=== PATIENT | male | born 1975 | race Caucasian/White ===

== ENCOUNTER 2016-04-04 09:30 | Outpatient (CLI) | payer OTHER ==
--- NOTE | 2016-04-04 12:52 | PN ---
DATE OF SERVICE: 04/04/2016 A 40-year-old gentleman who has been [facility] for treatment of obstructive sleep apnea-hypopnea syndrome. According to the patient and family, patient continued to use his equipment every night for the whole night. No snoring with the machine. [place] Sleepiness Scale is 5. CPAP pressure in the machine is 11. Patient increased his weight from 479 pounds up to 492 pounds today since that time when he had titration. Recently patient had been diagnosed with possible polyarthritis, started on treatment with anti-inflammatory medications. Previously, patient was on treatment with lisinopril for the high blood pressure. Presently, he is not on lisinopril. MEDICATIONS: Methotrexate, sulindac. During physical exam, a pleasant gentleman without distress. BP 150/89, HR 76, RR 16. Height 5, 11. Weight 492. BMI 68.6. Neck 17-1/4 inches in circumference. Temperature 97.8. Oxygen saturation at room air 96%. Oropharynx extremely low position of soft palate. EXTREMITIES: Obese, 1+ ankle edema. ABDOMEN: Obese. IMPRESSION: 1. Obstructive sleep apnea-hypopnea syndrome, clinically on control with CPAP at 11 cm of water. 2. Obesity. Patient increased his weight up, present body mass index 68.6. 3. Hypertension. 4. Arthritis. 5. Status posts fall about 1-1/2 years ago with right arm trauma. PLAN: 1. Continue treatment with CPAP every night for the whole night. 2. Prescription for all necessary CPAP supplies. 3. Follow with the primary care physician for monitoring of blood pressure and possibly treatment with medications. 4. Low-sodium diet. 5. No driving if feeling any sleepiness. 6. Sleep hygiene with regular time bed for at least 8 hours. Thank you very much for allowing me to participate in the management of your patient. Sincerely, Stanford León MD, PhD, FAASM. Diplomat of [place] [employer], Sleep Medicine Board by [place] [employer] [place] [employer] [facility] [place]
== END 2016-04-04 12:30 | disposition home or self-care (01) ==
LOC: SLEEP 09:30
PROVIDERS: ATTEND Internal Medicine
DX: G47.33 Obstructive sleep apnea (adult) (pediatric) (principal); E66.9 Obesity, unspecified; Z68.44 Body mass index [BMI] 60.0-69.9, adult; I10 Essential (primary) hypertension; M19.90 Unspecified osteoarthritis, unspecified site; Z79.899 Other long term (current) drug therapy

== ENCOUNTER 2018-09-13 18:59 | Inpatient (IN) | payer OTHER ==
[2018-09-13] MEDS ORDERED: ACETAMINOPHEN TAB 500 MG TAB PO STA (19:38)
[2018-09-13] MEDS ORDERED: IBUPROFEN 400 MG TAB PO STA (19:39)
--- NOTE | 2018-09-13 20:00 | ED ---
General Adult HPI - General Chief complaint: Headache Stated complaint: Headache Time Seen by Provider: 09/13/18 19:24 Source: patient Mode of arrival: ambulatory Limitations: no limitations - History of Present Illness Initial comments: 43-year-old male patient presents to the emergency department today for evaluation of headache, lightheadedness, and nausea. The patient states that he started feeling ill around 2 to 3:00 this afternoon. Patient states he did feel feverish and chilled despite it being 86 outside. Patient denies any nasal congestion, cough, sore throat, or rash. States he does have an infected right great toe. States it has been hurting for the last 3 days. Does notice some drainage from the area. He denies any vomiting or diarrhea. Denies any abdominal pain. Denies any sick contacts. Patient denies any recent rash, s hortness breath, chest pain, abdominal pain, constipation, back pain, numbness, tingling, dizziness, weakness, hematuria, dysuria, urinary urgency, urinary frequency, headache, visual changes, or any other complaints. - Related Data Home Medications Medication Instructions Recorded Confirmed Adalimumab [Humira Pediatric 40 mg SQ Q14D 09/13/18 09/13/18 Crohn's] Methotrexate Sodium [Methotrexate] 20 mg PO FR 09/13/18 09/13/18 Allergies Allergy/AdvReac Type Severity Reaction Status Date / Time No Known Allergies Allergy Verified 09/13/18 19:40 Review of Systems ROS Statement: Those systems with pertinent positive or pertinent negative responses have been documented in the HPI. ROS Other: All systems not noted in ROS Statement are negative. Past Medical History Additional Past Medical History / Comment(s): Psoriatic Arthritis, sleep apnea Past Surgical History: No Surgical Hx Reported Smoking Status: Never smoker Past Alcohol Use History: Occasional Past Drug Use History: None Reported General Exam Limitations: no limitations General appearance: alert, in no apparent distress, other (This is a well- developed, well-nourished adult male patient in no acute distress. Vital signs upon presentation are temperature 102.6F, pulse 103, respirations 17, blood pressure 168/73, pulse ox 97% on room air.) Eye exam: Present: normal appearance, PERRL, EOMI. Absent: scleral icterus, conjunctival injection, periorbital swelling ENT exam: Present: normal exam, normal oropharynx, mucous membranes moist Respiratory exam: Present: normal lung sounds bilaterally. Absent: respiratory distress, wheezes, rales, rhonchi, stridor Cardiovascular Exam: Present: regular rate, normal rhythm, normal heart sounds. Absent: systolic murmur, diastolic murmur, rubs, gallop, clicks Extremities exam: Present: full ROM, normal capillary refill, other (There is lymphedema noted to the right lower extremity. There is swelling, erythema, and drainage noted from the right great toe at the medial nail fold. Pedal pulses 2+ and equal bilaterally. Skin is otherwise pink and dry.). Absent: normal inspection, tenderness, pedal edema, joint swelling, calf tenderness Neurological exam: Present: alert, oriented X3, CN II-XII intact Psychiatric exam: Present: normal affect, normal mood Skin exam: Present: warm, dry, intact, normal color. Absent: rash Course Vital Signs 09/13/18 09/13/18 09/13/18 19:11 19:37 20:43 Temperature 100.8 F H 102.6 F H 100.8 F H Pulse Rate 103 H 93 Respiratory 17 18 Rate Blood Pressure 168/73 172/76 O2 Sat by Pulse 97 98 Oximetry Medical Decision Making - Medical Decision Making 43-year-old male patient presents to the emergency department today for evaluation of right great toe infection probably from ingrown toenail. Patient is febrile, white blood cell count is elevated. He is immunosuppressed currently taking Humira and methotrexate. He'll be admitted to the hospital for IV antibiotics and repeat labs. - Lab Data Result diagrams: 09/13/18 20:09 09/13/18 20:09 Lab Results 09/13/18 09/13/18 09/13/18 Range/Units 20:09 20:09 20:09 WBC 13.8 H (3.8-10.6) k/uL RBC 4.44 (4.30-5.90) m/uL Hgb 13.5 (13.0-17.5) gm/dL Hct 39.9 (39.0-53.0) % MCV 89.8 (80.0-100.0) fL MCH 30.5 (25.0-35.0) pg MCHC 33.9 (31.0-37.0) g/dL RDW 17.7 H (11.5-15.5) % Plt Count 258 (150-450) k/uL Neutrophils % 90 % Lymphocytes % 4 % Monocytes % 5 % Eosinophils % 0 % Basophils % 0 % Neutrophils # 12.4 H (1.3-7.7) k/uL Lymphocytes # 0.5 L (1.0-4.8) k/uL Monocytes # 0.7 (0-1.0) k/uL Eosinophils # 0.1 (0-0.7) k/uL Basophils # 0.1 (0-0.2) k/uL Anisocytosis Slight PT (9.0-12.0) sec INR (<1.2) APTT (22.0-30.0) sec Sodium 137 (137-145) mmol/L Potassium 4.4 (3.5-5.1) mmol/L Chloride 103 (98-107) mmol/L Carbon Dioxide 25 (22-30) mmol/L Anion Gap 9 mmol/L BUN 16 (9-20) mg/dL Creatinine 0.90 (0.66-1.25) mg/dL Est GFR (CKD-EPI)AfAm >90 (>60 ml/min/1.73 sqM) Est GFR (CKD-EPI)NonAf >90 (>60 ml/min/1.73 sqM) Glucose 111 H (74-99) mg/dL Plasma Lactic Acid Paul 1.7 (0.7-2.0) mmol/L Calcium 9.4 (8.4-10.2) mg/dL Total Bilirubin 0.6 (0.2-1.3) mg/dL AST 32 (17-59) U/L ALT 26 (21-72) U/L Alkaline Phosphatase 81 (38-126) U/L Total Protein 7.2 (6.3-8.2) g/dL Albumin 4.1 (3.5-5.0) g/dL Urine Color Urine Appearance (Clear) Urine pH (5.0-8.0) Ur Specific [place] (1.001-1.035) Urine Protein (Negative) Urine Glucose (UA) (Negative) Urine Ketones (Negative) Urine Blood (Negative) Urine Nitrite (Negative) Urine Bilirubin (Negative) Urine Urobilinogen (<2.0) mg/dL Ur Leukocyte Esterase (Negative) 09/13/18 09/13/18 Range/Units 20:09 20:09 WBC (3.8-10.6) k/uL RBC (4.30-5.90) m/uL Hgb (13.0-17.5) gm/dL Hct (39.0-53.0) % MCV (80.0-100.0) fL MCH (25.0-35.0) pg MCHC (31.0-37.0) g/dL RDW (11.5-15.5) % Plt Count (150-450) k/uL Neutrophils % % Lymphocytes % % Monocytes % % Eosinophils % % Basophils % % Neutrophils # (1.3-7.7) k/uL Lymphocytes # (1.0-4.8) k/uL Monocytes # (0-1.0) k/uL Eosinophils # (0-0.7) k/uL Basophils # (0-0.2) k/uL Anisocytosis PT 10.1 (9.0-12.0) sec INR 0.9 (<1.2) APTT 24.0 (22.0-30.0) sec Sodium (137-145) mmol/L Potassium (3.5-5.1) mmol/L Chloride (98-107) mmol/L Carbon Dioxide (22-30) mmol/L Anion Gap mmol/L BUN (9-20) mg/dL Creatinine (0.66-1.25) mg/dL Est GFR (CKD-EPI)AfAm (>60 ml/min/1.73 sqM) Est GFR (CKD-EPI)NonAf (>60 ml/min/1.73 sqM) Glucose (74-99) mg/dL Plasma Lactic Acid Paul (0.7-2.0) mmol/L Calcium (8.4-10.2) mg/dL Total Bilirubin (0.2-1.3) mg/dL AST (17-59) U/L ALT (21-72) U/L Alkaline Phosphatase (38-126) U/L Total Protein (6.3-8.2) g/dL Albumin (3.5-5.0) g/dL Urine Color Yellow Urine Appearance Clear (Clear) Urine pH 7.5 (5.0-8.0) Ur Specific [place] 1.025 (1.001-1.035) Urine Protein Negative (Negative) Urine Glucose (UA) Negative (Negative) Urine Ketones Negative (Negative) Urine Blood Negative (Negative) Urine Nitrite Negative (Negative) Urine Bilirubin Negative (Negative) Urine Urobilinogen <2.0 (<2.0) mg/dL Ur Leukocyte Esterase Negative (Negative) - Radiology Data Radiology results: report reviewed, image reviewed 3 views of the right great toe were performed. Report was reviewed in its entirety. Impression by Dr. Vazquez shows diffuse soft tissue signs on the first great right toe with no current radiographic sequela of osteomyelitis. Disposition Clinical Impression: Ingrown toenail of right foot with infection Disposition: ADMITTED IP TO THIS [facility] Condition: Serious Referrals: None,Stated [Primary Care Provider] - 1-2 days Decision to Admit Reason: Admit from EC Decision Date: 09/13/18 Decision Time: 22:05
[2018-09-13] MEDS: SODIUM CHLORIDE 0.9% 500 ML 500 ML IV SCH ×3 (20:15→21:00)
[2018-09-13 20:44] VITALS: RESP 18
--- NOTE | 2018-09-13 20:46 | XR ---
EXAMINATION TYPE: XR toes RT DATE OF EXAM: 09/13/2018 COMPARISON: NONE HISTORY: Pain on the right first toe. TECHNIQUE: 3 views of the right great toe were performed. FINDINGS: No acute fracture or dislocation seen in the right first/great toe. Minimal degenerative ch anges seen as small marginal osteophytes of the distal interphalangeal joint. There is diffuse soft t issue swelling seen. No periosteal reaction or osseous erosions are seen at this time. No repeat fore ign body. IMPRESSION: Diffuse soft tissue swelling surrounding the first/great right toe with no current radiog raphic sequela of osteomyelitis.
[2018-09-13 20:50] LABS: Appearance,Urine Clear (Clear); Bilirubin,Urine Negative (Negative); Blood,Urine Negative (Negative); Color,Urine Yellow; Glucose,Urine (UA) Negative (Negative); Ketones,Urine Negative (Negative); Leukocyte Esterase,Urine Negative (Negative); Nitrite,Urine Negative (Negative); PH, Urine 7.5 (5.0-8.0); Protein,Urine Negative (Negative); Specific Gravity,Urine 1.025 (1.001-1.035); Urobilinogen,Urine <2.0 mg/dL (<2.0)
[2018-09-13 20:53] LABS: ALT 26 U/L (21-72); AST 32 U/L (17-59); African American GFR (CKD) >90 (>60 ml/min/1.73 sqM); Albumin 4.1 g/dL (3.5-5.0); Alkaline Phosphatase 81 U/L (38-126); Anion Gap 9 mmol/L; Blood Urea Nitrogen 16 mg/dL (9-20); Calcium 9.4 mg/dL (8.4-10.2); Carbon Dioxide 25 mmol/L (22-30); Chloride 103 mmol/L (98-107); Glucose 111 mg/dL (74-99); Potassium 4.4 mmol/L (3.5-5.1); Sodium 137 mmol/L (137-145); Total Bilirubin 0.6 mg/dL (0.2-1.3); Total Protein 7.2 g/dL (6.3-8.2)
[2018-09-13 20:56] LABS: Anisocytosis Slight; Basophils # (A) 0.1 k/uL (0-0.2); Basophils % (A) 0 %; Eosinophils # (A) 0.1 k/uL (0-0.7); Eosinophils % (A) 0 %; HCT 39.9 % (39.0-53.0); HGB 13.5 gm/dL (13.0-17.5); Lymphocytes # (A) 0.5 k/uL (1.0-4.8); Lymphocytes % (A) 4 %; MCH 30.5 pg (25.0-35.0); MCHC 33.9 g/dL (31.0-37.0); MCV 89.8 fL (80.0-100.0); Mean Platelet Volume 7.8; Monocytes # (A) 0.7 k/uL (0-1.0); Monocytes % (A) 5 %; Neutrophils # (A) 12.4 k/uL (1.3-7.7); Neutrophils % (A) 90 %; Platelet Count 258 k/uL (150-450); RBC 4.44 m/uL (4.30-5.90); RDW 17.7 % (11.5-15.5); WBC 13.8 k/uL (3.8-10.6)
[2018-09-13 21:03] LABS: INR 0.9 (<1.2); Prothrombin Time 10.1 sec (9.0-12.0)
[2018-09-13] MEDS ORDERED: NALOXONE 0.4 MG/ML 1 ML VIAL IV PRN (21:59)
[2018-09-13] MEDS ORDERED: ACETAMINOPHEN TAB 325 MG TAB PO PRN (21:59)
[2018-09-13] MEDS ORDERED: MORPHINE SULFATE 4 MG/ML SYRINGE IVP STA (22:17)
[2018-09-14 05:54] LABS: Anisocytosis Slight; Basophils % (A) 0 %; Eosinophils % (A) 0 %; HCT 37.9 % (39.0-53.0); HGB 12.7 gm/dL (13.0-17.5); Lymphocytes # (A) 0.4 k/uL (1.0-4.8); Lymphocytes % (A) 3 %; MCH 30.3 pg (25.0-35.0); MCHC 33.5 g/dL (31.0-37.0); MCV 90.6 fL (80.0-100.0); Mean Platelet Volume 7.1; Monocytes # (A) 0.6 k/uL (0-1.0); Monocytes % (A) 4 %; Neutrophils % (A) 91 %; Platelet Count 205 k/uL (150-450); RBC 4.18 m/uL (4.30-5.90); RDW 17.2 % (11.5-15.5); WBC 13.2 k/uL (3.8-10.6)
--- NOTE | 2018-09-14 06:32 | P.HPIM ---
History of Present Illness H&P Date: 09/14/18 Chief Complaint: Ingrown toenail 43-year-old male with history of psoriatic arthritis on immunosuppressive is Patient presented to the hospital 3 day history of fevers and chills, he noticed ingrown toenail over his right great toe this is a recurrent condition for him. He didn't try anything at home however notes that it's getting worse for which she decided to come to the hospital. Patient reports severe sharp pain in the right toe rated at 7 out of 10 in severity and radiates to the front worse with weightbearing and walking and wearing the shoes. Pain improves with rest. Patient also reports history of psoriatic arthritis for which she is on immunosuppressive therapy with Humira and methotrexate. Patient has chronic lymphedema bilateral lower extremities which is chronic in nature. In the ED he was found to be febrile with elevated white count due to the fact that he is on immunosuppressant and was admitted for IV antibiotics and podiatry evaluation. Review of Systems Pertinent positives as noted in HPI. All other systems were reviewed and are negative Past Medical History Additional Past Medical History / Comment(s): Psoriatic Arthritis, sleep apnea,LYMPHEDEMA History of Any Multi-Drug Resistant Organisms: None Reported Past Surgical History: No Surgical Hx Reported Past Anesthesia/Blood Transfusion Reactions: No Reported Reaction Smoking Status: Never smoker Past Alcohol Use History: Occasional Past Drug Use History: None Reported - Past Family History Father History Unknown: Yes Mother History Unknown: Yes Medications and Allergies Home Medications Medication Instructions Recorded Confirmed Type Adalimumab [Humira Pediatric 40 mg SQ Q14D 09/13/18 09/13/18 History Crohn's] Methotrexate Sodium [Methotrexate] 20 mg PO FR 09/13/18 09/13/18 History Allergies Allergy/AdvReac Type Severity Reaction Status Date / Time No Known Allergies Allergy Verified 09/13/18 19:40 Physical Exam Vitals: Vital Signs Temp Pulse Pulse Resp BP BP Pulse Ox 09/13/18 23:20 99.1 F 92 18 123/71 92 L 09/13/18 23:04 100.2 F H 71 18 132/63 98 09/13/18 20:43 100.8 F H 93 18 172/76 98 09/13/18 19:37 102.6 F H 09/13/18 19:11 100.8 F H 103 H 17 168/73 97 Intake and Output 09/13/18 09/13/18 09/14/18 14:59 22:59 06:59 Other: Weight 230.879 kg Constitutional: No acute distress, conversant, pleasant Eyes: Anicteric sclerae, moist conjunctiva, no lid-lag Pupils equal round reactive to light ENMT: NC/AT Oropharynx clear, no erythema, or exudates Neck: Supple, FROM, no masses, or JVD No carotid bruits No thyromegaly Lungs: Clear to auscultation Clear to percussion Normal respiratory effort, no accessory muscle use Cardiovascular: Heart regular in rate and rhythm, No murmurs, gallops, or rubs Bilateral lymphedema of lower extremities right worse than left chronic in nature with chronic skin changes Abdominal: Soft Nontender, no guarding, rebound or rigidity Abdomen moving with respiration Normoactive bowel sounds No hepatomegaly, No splenomegaly No palpable mass No abdominal wall hernia noted Skin: Right great toe with ingrown toenail and the lateral aspect with no drainage upon exam, positive for erythema and slight induration and warmth to touch with tenderness. Otherwise skin Normal temperature, tone, texture, turgor Chronic skin changes over bilateral lower extremity due to chronic lymphedema Extremities: No digital cyanosis No clubbing Pedal pulses not palpable due to chronic lymphedema, capillary refill is immediate bilateral toes Radial pulses intact and symmetrical No calf tenderness Psychiatric: Alert and oriented to person, place and time Appropriate affect fair judgment Neuro Muscles Strength 5/5 in bilateral upper extremities, 4 out of 5 in bilateral lower extremities Sensation to light touch grossly present throughout Cranial nerves II-XII grossly intact No focal sensory deficits Lymphatics: no palpable cervical or supraclavicular , or inguinal lymph nodes Results CBC & Chem 7: 09/14/18 05:29 09/13/18 20:09 Labs: Abnormal Lab Results - Last 24 Hours (Table) 09/13/18 09/13/18 Range/Units 20:09 20:09 WBC 13.8 H (3.8-10.6) k/uL RDW 17.7 H (11.5-15.5) % Neutrophils # 12.4 H (1.3-7.7) k/uL Lymphocytes # 0.5 L (1.0-4.8) k/uL Glucose 111 H (74-99) mg/dL Microbiology - Last 24 Hours (Table) 09/13/18 20:09 Urine Culture - Preliminary Urine,Voided Thrombosis Risk Factor Assmnt - Choose All That Apply Any of the Below Risk Factors Present?: Yes Each Factor Represents 1 point: Age 41-60 years, Obesity (BMI >25), Swollen legs (current) Other Risk Factors: No Other congenital or acquired thrombophilia - If yes, enter type in comment: No Thrombosis Risk Factor Assessment Total Risk Factor Score: 3 Thrombosis Risk Factor Assessment Level: Moderate Risk Assessment and Plan Assessment: 43-year-old male with history of psoriatic arthritis on immunosuppressants, admitted under observation with anticipated length of stay less than 48 hours due to right ingrown toenail with toenail infection and sepsis, patient was started on IV antibiotic to 2 being immunosuppressed by methotrexate and Humira for close monitoring overnight and podiatry evaluation Plan: Sepsis secondary to toenail infection Right ingrown toenail She started on IV antibiotics Follow-up cultures Podiatry evaluation Pain control Chronic conditions Obesity Sporadic arthritis on immunosuppressants Lymphedema bilateral lower extremities DVT prophylaxis heparin subcu 3 times a day CODE STATUS: Full code Discussed with: Patient, ER, RN Anticipated discharge: < [address]: Home A total of 60 minutes was spent on the care of this complex patient more than 50% of the time was spent in counseling and care coordination.
[2018-09-14] MEDS: HEPARIN SODIUM,PORCINE 5,000 UNIT/ML 1 ML VIAL SQ SCH ×3 (09:41→22:48)
--- NOTE | 2018-09-14 16:01 | P.CONS ---
History of Present Illness - Reason for Consult Consult date: 09/14/18 Right big toe infection Requesting physician: Afia Walton - Chief Complaint Right big toe pain swelling redness x few days - History of Present Illness Patient is a 43-year-old male has been dealing with right big toe ingrowing toenail for a couple of weeks now however has been hurting more for the last 3 days before presentation hospital, patient described the pain to be more of a throbbing in nature about 5-6 out of 10 with no radiation patient did notice some drainage from the toenail area as well patient started getting sick mostly generalized symptoms of headache not feeling well and nausea for the patient presented to [facility] ER yesterday in the evening patient was evaluated by the ER physician on presentation hospital the patient did have a fever of 102F, the patient was tachycardic did have elevated white count 13.8 patient did have x-rays of the right foot which did not show any acute bony changes patient had been started on cefazolin 1 g every 6 hours infections was consulted for further recommendation regarding antibiotic, Review of Systems Positive point has been mentioned in the HPI rest of the systems are negative Past Medical History Additional Past Medical History / Comment(s): Psoriatic Arthritis, sleep apnea,LYMPHEDEMA History of Any Multi-Drug Resistant Organisms: None Reported Past Surgical History: No Surgical Hx Reported Past Anesthesia/Blood Transfusion Reactions: No Reported Reaction Smoking Status: Never smoker Past Alcohol Use History: Occasional Past Drug Use History: None Reported - Past Family History Father History Unknown: Yes Mother History Unknown: Yes Medications and Allergies Home Medications Medication Instructions Recorded Confirmed Type Adalimumab [Humira Pediatric 40 mg SQ Q14D 09/13/18 09/13/18 History Crohn's] Methotrexate Sodium [Methotrexate] 20 mg PO FR 09/13/18 09/13/18 History Allergies Allergy/AdvReac Type Severity Reaction Status Date / Time No Known Allergies Allergy Verified 09/13/18 19:40 Physical Exam Vitals: Vital Signs Temp Pulse Pulse Resp BP BP Pulse Ox 09/14/18 12:00 94 18 09/14/18 08:00 94 18 09/14/18 07:10 99.6 F 94 18 143/69 98 09/14/18 04:00 92 18 09/13/18 23:20 99.1 F 92 18 123/71 92 L 09/13/18 23:04 100.2 F H 71 18 132/63 98 09/13/18 20:43 100.8 F H 93 18 172/76 98 09/13/18 19:37 102.6 F H 09/13/18 19:11 100.8 F H 103 H 17 168/73 97 Intake and Output 09/13/18 09/14/18 09/14/18 22:59 06:59 14:59 Intake Total 677 Balance 677 Intake: Oral 477 Other 200 Other: Voiding Method Toilet Weight 230.879 kg GENERAL DESCRIPTION: Middle-aged male lying in bed, no distress. No tachypnea or accessory muscle of respiration use. HEENT: Shows Pallor , no scleral icterus. Oral mucous membrane is dry. No pharyngeal erythema or thrush NECK: Trachea central, no thyromegaly. LUNGS: Unlabored breathing. Clear to auscultation anteriorly. No wheeze or crackle. HEART: S1, S2, regular rate and rhythm. No loud murmur ABDOMEN: Soft, no tenderness , guarding or rigidity, no organomegaly EXTREMITIES: Right big toe with ingrown toenails some swelling minimal redness slightly tender to touch no drainage was noticed SKIN: No rash, no masses palpable. NEUROLOGICAL: The patient is awake, alert, oriented x3, mood and affect normal. Results CBC & Chem 7: 09/14/18 05:29 09/13/18 20:09 Labs: Abnormal Lab Results - Last 24 Hours (Table) 09/13/18 09/13/18 09/14/18 Range/Units 20:09 20:09 05:29 WBC 13.8 H 13.2 H (3.8-10.6) k/uL RBC 4.18 L (4.30-5.90) m/uL Hgb 12.7 L (13.0-17.5) gm/dL Hct 37.9 L (39.0-53.0) % RDW 17.7 H 17.2 H (11.5-15.5) % Neutrophils # 12.4 H 12.0 H (1.3-7.7) k/uL Lymphocytes # 0.5 L 0.4 L (1.0-4.8) k/uL Glucose 111 H (74-99) mg/dL Microbiology - Last 24 Hours (Table) 09/13/18 20:09 Urine Culture - Preliminary Urine,Voided Assessment and Plan Assessment: 1-patient presented to hospital with sepsis in this patient who did have a fever of 102F mild tachycardia and elevated white count of 13.8 thousand so slightly her right big toe cellulitis with the respective including ingrowing toenail who did call for the gram-positive skin byron with the likely pathogen clinically doubt gram-negative or resistant pathogens (1) Sepsis Current Visit: Yes Status: Acute Code(s): A41.9 - SEPSIS, UNSPECIFIED ORGANISM SNOMED Code(s): 83114134 (2) Ingrown toenail of right foot with infection Current Visit: Yes Status: Acute Code(s): L60.0 - INGROWING NAIL SNOMED Code(s): 265815487 Plan: 1-cefazolin to be increased up to 2 g every 6 hours 2-await podiatry evaluation possible debridement resection of the ingrowing toenail and deep cultures We will follow on clinical condition and cultures to further adjust medication if needed Thank you for this consultation will follow this patient with you Time with Patient: Greater than 30
--- NOTE | 2018-09-14 16:49 | P.PN ---
Subjective Progress Note Date: 09/14/18 Patient was reevaluated after being Patient earlier today and stated that his pain is better on the right big toe area. Patient stated that pain is worse when he put his shoes on. Noted patient does have unclipped, elongated and crooked toenails with right big toe ingrowing toenail infection. Patient was advised to have better foot hygiene and care done appropriately and timely. Await podiatry evaluation, patient was evaluated by infectious disease and there recommendations were appreciated. Objective - Vital Signs Vital signs: Vital Signs Temp 98.5 F 09/14/18 15:41 Pulse 77 09/14/18 15:57 Resp 18 09/14/18 15:57 BP 145/64 09/14/18 15:41 Pulse Ox 96 09/14/18 15:41 Intake & Output 09/13/18 09/14/18 09/14/18 18:59 06:59 18:59 Intake Total 677 Balance 677 Weight 230.879 kg Intake: Oral 477 Other 200 Other: Voiding Method Toilet # Voids 3 - Labs CBC & Chem 7: 09/14/18 05:29 09/13/18 20:09 Labs: Abnormal Lab Results - Last 24 Hours (Table) 09/13/18 09/13/18 09/14/18 Range/Units 20:09 20:09 05:29 WBC 13.8 H 13.2 H (3.8-10.6) k/uL RBC 4.18 L (4.30-5.90) m/uL Hgb 12.7 L (13.0-17.5) gm/dL Hct 37.9 L (39.0-53.0) % RDW 17.7 H 17.2 H (11.5-15.5) % Neutrophils # 12.4 H 12.0 H (1.3-7.7) k/uL Lymphocytes # 0.5 L 0.4 L (1.0-4.8) k/uL Glucose 111 H (74-99) mg/dL Microbiology - Last 24 Hours (Table) 09/13/18 20:09 Urine Culture - Preliminary Urine,Voided
[2018-09-15] MEDS: HEPARIN SODIUM,PORCINE 5,000 UNIT/ML 1 ML VIAL SQ SCH (07:21)
[2018-09-15 08:46] LABS: Anisocytosis Slight; Basophils % (A) 1 %; Eosinophils % (A) 1 %; HCT 36.1 % (39.0-53.0); HGB 12.3 gm/dL (13.0-17.5); Lymphocytes # (A) 0.9 k/uL (1.0-4.8); Lymphocytes % (A) 17 %; MCH 30.1 pg (25.0-35.0); MCHC 33.9 g/dL (31.0-37.0); MCV 88.8 fL (80.0-100.0); Monocytes # (A) 0.4 k/uL (0-1.0); Monocytes % (A) 8 %; Neutrophils # (A) 3.7 k/uL (1.3-7.7); Neutrophils % (A) 70 %; Platelet Count 215 k/uL (150-450); RBC 4.07 m/uL (4.30-5.90); RDW 16.1 % (11.5-15.5); WBC 5.4 k/uL (3.8-10.6)
[2018-09-15] MEDS ORDERED: ONDANSETRON 4 MG/2 ML VIAL IVP PRN (09:20)
--- NOTE | 2018-09-15 10:50 | P.PN ---
Subjective Progress Note Date: 09/15/18 Patient reports that he is feeling fine and denies fever/chills. He reports that he takes his methotrexate on Fridays and Humira every other week, mainly in wintertime because of the flareup of his psoriatic arthritis. Nurses reported the patient has refused antibiotics overnight because of complains of stomach upset. Patient was supposed to be seen by the bulk station operator and currently pending their input and recommendation. Patient denies chest pain, palpitation, headache, dizziness, shortness breath, nausea, vomiting, diarrhea and denies rest of the review system. Objective - Vital Signs Vital signs: Vital Signs Temp 98.8 F 09/15/18 05:00 Pulse 74 09/15/18 05:00 Resp 18 09/15/18 05:00 BP 148/74 09/15/18 05:00 Pulse Ox 95 09/15/18 05:00 Intake & Output 09/14/18 09/15/18 09/15/18 18:59 06:59 18:59 Intake Total 677 400 Balance 677 400 Intake: Oral 477 400 Other 200 Other: Voiding Method Toilet # Voids 3 1 - Constitutional General appearance: Present: cooperative, no acute distress - EENT Eyes: Present: EOMI, normal appearance - Respiratory Respiratory: bilateral: CTA, negative: rales, rhonchi, wheezing - Cardiovascular Rhythm: regular Heart sounds: normal: S1, S2 Abnormal Heart Sounds: Absent: systolic murmur, diastolic murmur, S3 Gallop, S4 Gallop - Gastrointestinal Gastrointestinal Comment(s): Obese abdomen, soft, nontender/nondistended and bowel sounds positive on all 4 quadrant. - Neurologic Neurologic: Present: CNII-XII intact. Absent: focal deficits - Musculoskeletal Musculoskeletal Comment(s): Chronic bilateral lower extremity venous stasis stasis dermatitis/lymphedema, both feet hygiene with elongating dates, right great toe lateral side ingrowing toenail with surrounding erythema and tenderness and no fluctuation noted. - Psychiatric Psychiatric: Present: A&O x's 3, appropriate affect, intact judgment & insight - Allied health notes Allied health notes reviewed: nursing - Labs CBC & Chem 7: 09/15/18 08:15 09/13/18 20:09 Labs: Abnormal Lab Results - Last 24 Hours (Table) 09/15/18 09/15/18 Range/Units 08:15 08:15 RBC 4.07 L (4.30-5.90) m/uL Hgb 12.3 L (13.0-17.5) gm/dL Hct 36.1 L (39.0-53.0) % RDW 16.1 H (11.5-15.5) % Lymphocytes # 0.9 L (1.0-4.8) k/uL C-Reactive Protein 86.6 H (<10.0) mg/L Microbiology - Last 24 Hours (Table) 09/13/18 20:15 Blood Culture - Preliminary Blood No Growth after 24 hours 09/13/18 20:09 Urine Culture - Final Urine,Voided Assessment and Plan (1) Ingrown toenail of right foot with infection Current Visit: Yes Status: Acute Priority: High Code(s): L60.0 - INGROWING NAIL SNOMED Code(s): 892378629 (2) Cellulitis and abscess of foot Current Visit: Yes Status: Acute Priority: High Code(s): L03.119 - CELLULITIS OF UNSPECIFIED PART OF LIMB; L02.619 - CUTANEOUS ABSCESS OF UNSPECIFIED FOOT SNOMED Code(s): 130293171 (3) Sepsis Current Visit: Yes Status: Acute Priority: High Code(s): A41.9 - SEPSIS, UNSPECIFIED ORGANISM SNOMED Code(s): 72876786 (4) Lymphedema of leg Current Visit: Yes Status: Chronic Priority: Medium Code(s): I89.0 - LYMPHEDEMA, NOT ELSEWHERE CLASSIFIED SNOMED Code(s): 935302623 (5) Obesity (BMI 30.0-34.9) Current Visit: No Status: Chronic Priority: Medium Code(s): E66.9 - OBESITY, UNSPECIFIED SNOMED Code(s): 793395678185316 (6) HAROLDO (obstructive sleep apnea) Current Visit: Yes Status: Acute Priority: Medium Code(s): G47.33 - OBSTRUCTIVE SLEEP APNEA (ADULT) (PEDIATRIC) SNOMED Code(s): 90981363 Plan: waiting for podiatry evaluation and their recommendation, patient's nurse and pantry steward/stewardess was informed to remind the podiatry service on consult to see the patient and give their recommendation/appropriate procedure for the patient's current condition. Regarding ant-Biotics treatment,as patient is refusing CEFAZOLIN because he was sick to stomach last night, I'm not sure whether it is due to Ancef but will have the infectious disease provider Dr. Baxter to reevaluate the need for antibiotics and if needed to specity the IV v/s oral route. Patient reported that he can miss the dose of Humira without significant worsening of his psoriatic arthritis and he reported that his Humira is due tomorrow 09/16/2018 but he can wait another week before he can get himself this injection. Rest of medication will be continued as it is. Once patient has final treatment from podiatry and their recommendations are available then discharge planning can be coordinated. Time with Patient: Less than 30
[2018-09-15 11:38] LABS: Erythrocyte Sedimentation Rate 36 mm/hr (0-15)
[2018-09-15 13:05] VITALS: BP 131/85; PULSE 72; TEMP 98.7
--- NOTE | 2018-09-15 14:51 | PN ---
PROGRESS NOTE DATE OF SERVICE: 09/15/2018 REASON FOR FOLLOWUP: Right big toe ingrowing toenail with cellulitis. INTERVAL HISTORY: The patient is currently afebrile. The patient has been breathing comfortably. Denies having any chest pain or any cough. The big toe pain discomfort has improved, no drainage. PHYSICAL EXAMINATION: Blood pressure 131/85 with a pulse of 72, temperature 98.7, he is 93% on room air. General description is a middle-aged male, lying in bed in no distress. RESPIRATORY SYSTEM: Unlabored breathing, clear to auscultation anteriorly. HEART: S1, S2. Regular rate and rhythm. ABDOMEN: Soft, no tenderness. Right being toe swelling and redness have improved. No drainage. Still has slight tenderness. LABS: White count normalized to 5.4, 86.6. DIAGNOSTIC IMPRESSION AND PLAN: Patient with right big toe, great toe noted with secondary cellulitis responded to cephazolin, did have slight GI nausea responded to Zofran to continue. Waiting for ID evaluation and treatment of the ingrowing toenail. Continue supportive care. MMODL / IJN: [id number] /
--- NOTE | 2018-09-15 15:55 | P.DS ---
Providers Date of admission: 09/15/18 13:49 Expected date of discharge: 09/15/18 Attending physician: Afia Walton MD Consults: 09/13/18 22:00 Consult Physician Routine Consulting Provider: David Baxter Consult Reason/Comments: Right great toe infection; Lymphedema; Immunosuppression Do you want consulting provider notified?: Yes 09/13/18 22:36 Consult Physician Routine Consulting Provider: Garcia Pham Consult Reason/Comments: right great toe ingrown toenail Do you want consulting provider notified?: Yes Primary care physician: Stated None - Discharge Diagnosis(es) (1) Ingrown toenail of right foot with infection Current Visit: Yes Status: Acute Priority: High (2) Cellulitis and abscess of foot Current Visit: Yes Status: Acute Priority: High (3) Sepsis Current Visit: Yes Status: Acute Priority: High (4) Lymphedema of leg Current Visit: Yes Status: Chronic Priority: Medium (5) Obesity (BMI 30.0-34.9) Current Visit: No Status: Chronic Priority: Medium (6) HAROLDO (obstructive sleep apnea) Current Visit: Yes Status: Acute Priority: Medium Hospital Course: Patient was admitted to the hospital for acute management of febrile illness and day ingrowing toenail with surrounding cellulitis on face of the immunosuppressive status and patient was started on IV antibiotics. Infectious disease was consulted and patient was seen by Dr. Baxter who increased the antibiotics to cefazolin 2 g IV piggyback every 6 hours. Patient continued to improve but he was waiting for Dr. Pham for evaluation and management of his ingrowing toenail. Patient got upset because he was told that Dr. Pham will be coming after 7 PM tonight to evaluate him for the first time. Patient is been in the hospital for over 48 hours and patient got upset that has not been seen by the specialist. Patient requested to be discharged home on oral antibiotics as he feels that he was doing better and he stated that he wants to follow up with the ornament maker hand as an outpatient. This remote mortgage underwriter was called and I have spent about 2024 minutes with the patient and patient's father explained the need for appropriate care for his ingrowing toenail in face of immunosuppressed status. Patient stated that if his condition gets worse she will return to the hospital otherwise he would like to go now on oral antibiotics. A call was made to Dr. Baxter and he was updated about the patient's request for discharge. It was recommended by him to discharge the patient on Keflex 500 mg every 6 hours for 10 more days and to follow with him in one week in his office. Appointment will be made with Dr. Baxter in one week. It was also recommended to follow with his primary care provider in 1-2 weeks. Patient was advised follow up with the ornament maker hand/get established with ornament maker hand for his regular/routine feet hygiene and care. Patient verbalizes understanding. Pertinent Studies: None. Procedures: None. Patient Condition at Discharge: Fair Plan - Discharge Summary Discharge Rx Participant: No New Discharge Prescriptions: New Cephalexin [Keflex] 500 mg PO Q6HR 10 Days #40 cap Continue Methotrexate Sodium [Methotrexate] 20 mg PO FR Adalimumab [Humira Pediatric Crohn's] 40 mg SQ Q14D Discharge Medication List Adalimumab [Humira Pediatric Crohn's] 40 mg SQ Q14D 09/13/18 [History] Methotrexate Sodium [Methotrexate] 20 mg PO FR 09/13/18 [History] Cephalexin [Keflex] 500 mg PO Q6HR 10 Days #40 cap 09/15/18 [Rx] Follow up Appointment(s)/Referral(s): None,Stated [Primary Care Provider] - 1-2 days David Baxter MD [STAFF PHYSICIAN] - 09/22/18 2:00 pm Patient Instructions/Handouts: Ingrown Nail (ED) Activity/Diet/Wound Care/Special Instructions: pt has follow up appointment scheduled with a ornament maker hand closer to his house. Discharge Disposition: HOME SELF-CARE
== END 2018-09-15 16:06 | disposition home or self-care (01) | DRG 872 ==
LOC: EC 18:59 → 1SOBS 21:34 → 4MS4W 09-14 21:17 → OBSVTOIN 09-15 13:49
PROVIDERS: ADMIT Internal Medicine; ATTEND Internal Medicine
DX: A41.9 Sepsis, unspecified organism (principal); K50.90 Crohn's disease, unspecified, without complications; L03.115 Cellulitis of right lower limb; L02.619 Cutaneous abscess of unspecified foot; Z68.45 Body mass index [BMI] 70 or greater, adult; L40.50 Arthropathic psoriasis, unspecified; E66.9 Obesity, unspecified; L03.039 Cellulitis of unspecified toe; G47.33 Obstructive sleep apnea (adult) (pediatric); L60.0 Ingrowing nail; I89.0 Lymphedema, not elsewhere classified; K30 Functional dyspepsia; Z79.899 Other long term (current) drug therapy
CPT/HCPCS: 36415; 80053; 81003; 83605; 85025; 85610; 85652; 85730; 86140; 87040; 87086; 96361; 96365; 96375; 99285

== ENCOUNTER → 2019-08-11 | Outpatient (CLI) | payer OTHER ==
--- NOTE | 2019-08-11 15:49 | CONS ---
CONSULTATION DATE OF SERVICE: 08/11/2019 This patient is a 43-year-old gentleman who has been evaluated in the sleep center for obstructive sleep apnea-hypopnea syndrome. The patient was seen by me in the sleep center 5 years ago. Since that time he has continued to use his CPAP unit and occasionally snores with the machine. His usual sleep schedule during weekdays is from 11 p.m. to 6 a.m. and on weekends from midnight until 9 a.m. Usually no problems with falling asleep. No TV in bedroom. He sleeps in different positions with his . He wakes up from sleep up to 4 times with up to one episode of nocturia. No history of hypnagogic hallucinations, sleep paralysis or cataplexy. [place] Sleepiness Scale is in normal range at 5. I checked his CPAP unit. CPAP pressure is 11 cm of water. Usage is 30/30 nights, 12/30 nights for more than 4 hours. Leak is only 1 L/minute. Apnea-hypopnea index 0.3, which is in normal range. Patient's weight has increased from 466 pounds to 518 pounds since his previous visit. PAST MEDICAL HISTORY: Positive for hypertension, psoriatic arthritis. MEDICATIONS: Methotrexate, folic acid, hydrochlorothiazide, Humira. PAST SURGICAL HISTORY: No recent surgical history. SOCIAL HISTORY: Negative for smoking. Alcohol consumption rarely. REVIEW OF SYSTEMS: Episodes of snoring while using CPAP. PHYSICAL EXAMINATION: GENERAL: A pleasant gentleman without distress. VITAL SIGNS: BP 159/73, HR 76, RR 16, height 5 feet 11 inches, weight 518, body mass index 72.2, temperature 97.7, oxygen saturation at room air 97%. HEENT: PERRLA, EOMI. Evaluation of oropharynx showed tongue protrudes midline. Low position of soft palate. NECK: Supple. No JVD. Thyroid is not palpable. LUNGS: Clear to percussion and to auscultation. Good air exchange. No wheezing or rhonchi. HEART: S1, S2 regular. No murmurs, gallops or rubs. ABDOMEN: Obese. EXTREMITIES: No clubbing or cyanosis. FARM PLANNER: Awake, alert, and oriented X3. Cranial nerves 2 to 7 intact. There is no fasciculation or atrophy. noted. No focal deficits observed. IMPRESSION: 1. Obstructive sleep apnea-hypopnea syndrome for many years. The patient continues to use his CPAP equipment. I reviewed results of previous sleep studies. Episodes of snoring while on treatment with CPAP. 2. Morbid obesity. 3. Hypertension. 4. History of mild periodic limb movements. 5. Psoriatic arthritis. PLAN: 1. I adjusted the regimen in his CPAP unit to a range of pressure from 8 to 15 cm of water. 2. Patient will continue to use CPAP equipment every night for the whole night. 3. Losing weight. 4. Sleep hygiene with regular time in bed for at least 7-1/2 to 8 hours. 5. No driving if feeling sleepiness. 6. Follow-up visit in 4 months. 7. Prescription for CPAP supplies, including mask, tube and filters. Thank you very much for allowing me to participate in the management of your patient. Sincerely, Stanford León MD, PhD, FAASM Diplomat of [employer] [facility] [place] MMODL / DONAVONN: [id number] /
== END | disposition home or self-care (01) ==
LOC: SLEEP 11:26
PROVIDERS: ATTEND Internal Medicine
DX: G47.33 Obstructive sleep apnea (adult) (pediatric) (principal); E66.01 Morbid (severe) obesity due to excess calories; I10 Essential (primary) hypertension; L40.50 Arthropathic psoriasis, unspecified; Z68.45 Body mass index [BMI] 70 or greater, adult; Z87.39 Personal history of other diseases of the musculoskeletal system and connective tissue; Z99.89 Dependence on other enabling machines and devices; Z79.899 Other long term (current) drug therapy
CPT/HCPCS: 99211